=== PATIENT | female | born 1995 | race Caucasian/White ===

== ENCOUNTER 2021-02-19 20:28 | Emergency (ER) | payer MEDICAID, OTHER ==
[~2021-02-19] VITALS: Ht 157.4 cm; Wt 81.6 kg
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
[2021-02-19 20:35] VITALS: BP 132/72
[2021-02-19 20:57] LABS: HEMATOCRIT 41 % (35-52); HEMOGLOBIN 13.7 G/DL (11.5-16.0); MEAN CORPUSCULAR HEMOGLOBIN 31 PG (25-34); MEAN CORPUSCULAR HGB CONC 33 G/DL (32-36); MEAN CORPUSCULAR VOLUME 92 FL (80-99); MEAN PLATELET VOLUME 11.8 FL (7.4-10.4); NEUTROPHILS % (AUTO) 83 % (42-75); PLATELET COUNT 249 10^3/uL (130-400); WHITE BLOOD COUNT 11.7 10^3/uL (4.3-11.0)
[2021-02-19 20:58] LABS: BASOPHILS # (AUTO) 0.1 10^3/uL (0.0-0.1); BASOPHILS % (AUTO) 1 % (0-10); EOSINOPHILS # (AUTO) 0.1 10^3/uL (0.0-0.3); EOSINOPHILS % (AUTO) 1 % (0-10); LYMPHOCYTES # (AUTO) 1.2 X 10^3 (1.0-4.0); LYMPHOCYTES % (AUTO) 10 % (12-44); MONOCYTES # (AUTO) 0.7 X 10^3 (0.0-1.0); MONOCYTES % (AUTO) 6 % (0-12); NEUTROPHILS # (AUTO) 9.6 X 10^3 (1.8-7.8)
[2021-02-19 21:08] LABS: BACTERIA,URINE NEGATIVE /HPF; BILIRUBIN,URINE NEGATIVE (NEGATIVE); CLARITY,URINE CLEAR; COLOR,URINE YELLOW; GLUCOSE, URINE (UA) NEGATIVE (NEGATIVE); KETONES,URINE NEGATIVE (NEGATIVE); LEUKOCYTE ESTERASE ,URINE NEGATIVE (NEGATIVE); NITRITE,URINE NEGATIVE (NEGATIVE); PROTEIN,URINE NEGATIVE (NEGATIVE); RBC,URINE RARE /HPF; SQUAMOUS EPITHELIAL CELL,UR RARE /HPF
--- NOTE | 2021-02-19 21:17 | Diagnostic Imaging Report ---
PROCEDURE: CT head without contrast. TECHNIQUE: Multiple contiguous axial images were obtained through the brain without the use of intravenous contrast. Auto Exposure Controls were utilized during the CT exam to meet ALARA standards for radiation dose reduction. INDICATION: Seizure. FINDINGS: The ventricles and sulci are within normal limits. There is no hydrocephalus or cerebral edema. There is no midline shift or mass effect. There is no intracranial mass, hemorrhage, or extra-axial fluid collection. The visualized paranasal sinuses and mastoid air cells are clear. There are no regional areas of decreased attenuation appreciated to suggest an acute CVA. IMPRESSION: No acute intracranial abnormality. If this is the patient's 1st seizure, further evaluation with MRI is recommended on a nonemergent basis. Dictated by: Dictated on workstation # [id number]
[2021-02-19 21:18] LABS: CHLORIDE 106 MMOL/L (98-107); SODIUM 136 MMOL/L (135-145)
[2021-02-19 21:19] LABS: ALANINE AMINOTRANSFERASE 10 U/L (0-55); ALBUMIN 4.4 GM/DL (3.2-4.5); ALKALINE PHOSPHATASE 45 U/L (40-136); BILIRUBIN,TOTAL 0.3 MG/DL (0.1-1.0); BUN/CREATININE RATIO 12; CALCIUM 9.2 MG/DL (8.5-10.1); CARBON DIOXIDE 19 MMOL/L (21-32); CREATININE SERUM 0.76 MG/DL (0.60-1.30); GFR ESTIMATED > 60; GLUCOSE 114 MG/DL (70-105); MAGNESIUM 2.7 MG/DL (1.6-2.4)
== END 2021-02-19 21:32 | disposition home or self-care (01) ==
LOC: ER FS 20:29
DX: R56.9 Unspecified convulsions (principal); Z91.040 Latex allergy status
CPT/HCPCS: 36415; 70450; 80053; 81000; 82947; 83735; 85025

== ENCOUNTER 2021-07-27 08:44 | Emergency (ER) | payer OTHER, MEDICAID ==
[~2021-07-27] VITALS: Ht 157.5 cm; Wt 81.6 kg
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
--- OUTSIDE RECORDS SUMMARY | 2021-07-27 08:47 | XMS REPORT | Clinical Summary ---
Author Author [facility] Organization [facility] Address Unknown Phone Unavailable Care Team Providers Care Director Distribution Name Role Phone Olga Mane APRN PCP Allergies Comments Active Allergy Reactions Severity Noted Date Latex, Natural Rubber 05/28/2021 Medications End Date Status Medication Sig Dispensed Refills Start Date Active QUEtiapine (SEROQUEL) 25 Take 25 mg by 0 MG tablet mouth daily. Active DULoxetine (CYMBALTA) 30 Take 30 mg by 0 mg capsule mouth daily. Active hydrOXYzine (ATARAX) 25 Take 25 mg by 0 MG tablet mouth 2 (two) 1 times a day as needed. for anxiety. Active levETIRAcetam (KEPPRA) Take 2 120 tablet 11 500 MG tabletIndications: tablets 1 Seizures, generalized (1,000 mg convulsive (HCC) total) by mouth 2 (two) times a day. 05/28/2022 Active folic acid (FOLVITE) 1 MG Take 1 tablet 30 tablet 11 tabletIndications: (1 mg total) 1 Seizures, generalized by mouth convulsive (HCC) daily. Active Problems Problem Noted Date Seizures, generalized convulsive 05/28/2021 Encounters Care Team Description Date Type Specialty Olga Mane APRN Croom, John E, MD Seizures, generalized convulsive (HCC) 05/28/2021 Initial consult Neurology from Last 3 Months Family History Medical History Relation Name Comments COPD Mother Relation Name Status Comments Brother Alive Father Alive Mother Alive Sister Alive Social History Date Tobacco Use Types Packs/Day Years Used Current Every Day Smoker Smokeless Tobacco: Never Used Comments Alcohol Use Standard Drinks/Week Yes 0 (1 standard drink = 0.6 o z pure alcohol) Sex Assigned at Date Recorded Not on file Last Filed Vital Signs Reading Time Taken [...] 05/28/2021 8:31 AM CDT Body Mass Index Plan of Treatment Care Team Description Date Type Specialty Devonte Hayes MD [address] [id number] 08/18/2021 Appointment Neurology Devonte Hayes MD [address] [id number] 08/18/2021 Appointment Radiology Devonte Hayes MD [address] [id number] 11/12/2021 Office Visit Neurology Health Maintenance Due Date Last Done Comments Td/Tdap# 1997 Tobacco Cessation 1997 Counseling # Pneumococcal Vaccine: 2003 Pediatrics (0 to 5 Years) and At-Risk Patients (6 to 64 Years) (1 of 2 - PPSV23) HPV Vaccine (1 - 2-dose 2008 series) COVID-19 Vaccine (1) 2009 Cervical Cancer Screening 2018 via Pap Smear Influenza Vaccine (#1) 2021 Results Not on filefrom Last 3 Months Insurance Type Payer Benefit Subscriber ID Effective Phone Address Plan / Dates Group HUMANA HUMANA [id number] 2020-P [phone] [address] [place] [id number] [place] [address] MEDICAID MANAGED CARE [employer] [id number] 2021-P [address] ([place]) STATE resent [address] [place] [id number] 1 Lizbeth Chen Personal/F Self 1995 [address] [facility] (Home) [place], [place] [address] Advance Directives For more information, please contact: [phone] 

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
[2021-07-27 10:23] VITALS: BP 137/83
== END 2021-07-27 10:23 | disposition home or self-care (01) ==
LOC: EDUNIT# 08:44 → ER FS 08:44
DX: S00.512A Abrasion of oral cavity, initial encounter (principal); R56.9 Unspecified convulsions; F17.210 Nicotine dependence, cigarettes, uncomplicated; V89.2XXA Person injured in unspecified motor-vehicle accident, traffic, initial encounter
CPT/HCPCS: 99283

== ENCOUNTER 2021-07-27 11:27 | Emergency (ER) | payer OTHER, MEDICAID ==
[~2021-07-27] VITALS: Ht 175.3 cm; Wt 81.6 kg
[2021-07-27] MEDS ORDERED: LORazepam INJ 2 MG/ML (ATIVAN) VIAL ONE (11:37)
[2021-07-27] MEDS ORDERED: LORazepam INJ 2 MG/ML (ATIVAN) VIAL IM ONE (11:45)
[2021-07-27 12:03] LABS: BASOPHILS # (AUTO) 0.1 10^3/uL (0.0-0.1); BASOPHILS % (AUTO) 1 % (0-10); EOSINOPHILS # (AUTO) 0.2 10^3/uL (0.0-0.3); EOSINOPHILS % (AUTO) 1 % (0-10); HEMATOCRIT 43 % (35-52); HEMOGLOBIN 14.2 g/dL (11.5-16.0); LYMPHOCYTES # (AUTO) 2.6 X 10^3 (1.0-4.0); LYMPHOCYTES % (AUTO) 13 % (12-44); MEAN CORPUSCULAR HEMOGLOBIN 30 pg (25-34); MEAN CORPUSCULAR HGB CONC 33 g/dL (32-36); MEAN CORPUSCULAR VOLUME 92 fL (80-99); MEAN PLATELET VOLUME 11.1 fL (9.0-12.2); MONOCYTES # (AUTO) 1.3 X 10^3 (0.0-1.0); MONOCYTES % (AUTO) 7 % (0-12); NEUTROPHILS # (AUTO) 15.5 X 10^3 (1.8-7.8); NEUTROPHILS % (AUTO) 79 % (42-75); PLATELET COUNT 284 10^3/uL (130-400); WHITE BLOOD COUNT 19.7 10^3/uL (4.3-11.0)
[2021-07-27 12:17] LABS: POTASSIUM 4.3 MMOL/L (3.6-5.0)
[2021-07-27 12:18] LABS: ALBUMIN 4.5 GM/DL (3.2-4.5); BILIRUBIN,TOTAL 0.2 MG/DL (0.1-1.0); CALCIUM 9.2 MG/DL (8.5-10.1); CREATININE SERUM 0.93 MG/DL (0.60-1.30); TOTAL PROTEIN 7.1 GM/DL (6.4-8.2)
[2021-07-27 12:22] LABS: LYMPHOCYTES % (MANUAL) 8 %; MONOCYTES % (MANUAL) 7 %; NEUTROPHILS % (MANUAL) 85 %
--- NOTE | 2021-07-27 12:31 | Diagnostic Imaging Report ---
PROCEDURE: CT head and CT cervical spine without contrast. TECHNIQUE: Multiple contiguous axial images were obtained through the brain and cervical spine without the use of intravenous contrast. Sagittal and coronal reformations through the cervical spine were then performed. Auto Exposure Controls were utilized during the CT exam to meet ALARA standards for radiation dose reduction. INDICATION: Seizure, trauma, hit head, pain COMPARISON: 02/19/2021 FINDINGS: No acute intracranial hemorrhage. No intracranial mass, mass effect, midline shift, herniation, hydrocephalus, or extra-axial fluid collection. No CT evidence of an acute ischemic infarction. The orbits are unremarkable. Small mucous retention cyst within the right sphenoid sinus. Otherwise, the paranasal sinuses appear clear. The calvarium and extracalvarial soft tissues are unremarkable. IMPRESSION: No acute intracranial abnormality. Small mucous retention cyst within the right sphenoid sinus. FINDINGS WITHIN THE CERVICAL SPINE: Alignment of the cervical spine is well maintained. Alignment of the atlantooccipital joint is well maintained. Vertebral body heights and disc spaces are well-maintained. No acute fracture or dislocation. No destructive osseous process. No apical pneumothorax. The paraspinal soft tissues are unremarkable. No high-grade osseous central canal or neural foraminal stenosis. IMPRESSION: No acute osseous abnormality of the cervical spine. Dictated by: Dictated on workstation # [id number]
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
[2021-07-27] MEDS ORDERED: ACETAMINOPHEN 500 MG TAB (TYLENOL) PO ONE (15:15)
[2021-07-27] MEDS ORDERED: ACETAMINOPHEN 500 MG TAB (TYLENOL) ONE (15:16)
[2021-07-27 15:21] VITALS: BP 131/72
== END 2021-07-27 15:21 | disposition home or self-care (01) ==
LOC: EDUNIT# 11:27 → ER FS 11:28
DX: G40.909 Epilepsy, unspecified, not intractable, without status epilepticus (principal); F17.210 Nicotine dependence, cigarettes, uncomplicated
CPT/HCPCS: 36415; 70450; 72125; 80053; 85007; 85027; 96365; 96372